=== PATIENT | male | born 1935 | race Caucasian/White ===

== ENCOUNTER 2017-12-07 19:08 | Observation (INO) | payer MEDICARE, OTHER, SELFPAY ==
[2017-12-07] VITALS (11 sets, daily range): BP systolic 117–151; BP diastolic 57–77; PULSE 64–81; RESP 16–24; TEMP 36.9–37.2; O2SAT 97–98; BMI 30.1; BMI 29.6; BMI 29.7
--- NOTE | 2017-12-07 19:21 | EKG12_ITS ---
Test Reason : DIZZYNESS Blood Pressure : / mmHG Vent. Rate : 080 BPM Atrial Rate : 080 BPM P-R Int : 224 ms QRS Dur : 082 ms QT Int : 366 ms P-R-T Axes : 000 010 058 degrees QTc Int : 422 ms Sinus rhythm with 1st degree A-V block with Premature atrial complexes Nonspecific ST and T wave abnormality Abnormal ECG Confirmed by JARAD BERNABE, VIRGIL ([id number]), copy editor NESTOR APPIAH ([id number]) on 12/13/2017 3:33:46 PM Referred By: KARELY Confirmed By:VIRGIL ABRAHAM MD
--- NOTE | 2017-12-07 19:21 | CT_ITS ---
STUDY: CT BRAIN WITHOUT CONTRAST REASON FOR EXAM: Male, 82 years old. Confusion RADIATION DOSAGE (If Supplied By Facility): CTDIvol = ( 44.99 ) mGy, DLP = ( 812.98 ) mGycm TECHNIQUE: Transaxial CT imaging of the brain was performed without administration of intravenous contrast material. Individualized dose optimization techniques were used for this CT. COMPARISON: 02/10/2014 FINDINGS: There is no acute bleed or infarct. There are stable chronic ischemic and atrophic changes. The ventricles are normal in configuration. There is no hydrocephalus. The visualized paranasal sinuses are clear. The mastoid air cells are well aerated. There is no skull fracture. CT/Brain/Head without Contrast IMPRESSION: Stable chronic ischemic and atrophic changes. No acute intracranial abnormality. Electronically Signed: Brad Tan, at 20:09 EDT Tel , Service support ,
--- NOTE | 2017-12-07 19:22 | ED.VISSUMM ---
- ER Visit Summary Date of Service: 12/07/17 Chief Complaint: Dizziness, difficulty ambulating History of Present Illness: The patient is a 82 M presents to the emergency department with multiple complaints. Patient has had lightheadedness and sensation of ataxia for the past 2 days. Today, his symptoms had worsened. notes that when he walks, he seems to be falling to the right. She also states that he was having some difficulty with tasks that he normally would not. When he was driving his car, he had difficulty backing it up. He denies any fevers or chills. He states I just do not feel myself. He denies any headache. He has had no recent trauma. Patient does have a history of hypertension, but denies any history of stroke. Has had no chest pain or dyspnea. Physical Examination: Vital signs reviewed General: Well-nourished, well-developed Head: Normocephalic, atraumatic Eyes: Pupils equal and reactive, extraocular muscles intact Neck, supple, no lymphadenopathy Heart: Regular rate and rhythm Respiratory: No distress, clear bilaterally Abdomen: Soft, nontender, nondistended, no peritoneal signs Back: Nontender Extremities: Nontender, no edema, no cords Skin: Normal color no rash Neuro: Alert and oriented, difficulty with coordination of the right lower extremity, but no other focal or lateralizing deficits Test Results: [] Emergency Department Course and Treatment: The patient presents to the emergency department with generalized weakness. He has been feeling the sensation of motion for the past 2-3 days. Today, he was having difficulty with tasks. My concern was for subacute stroke age was only 3 for some slight ataxia of the right lower extremity. However, even with simple tasks like collecting a urine, the patient was having difficulty. It was almost as if there was a component of receptive aphasia where he just could not fully understand the concepts which is definitely different from the patient's baseline. His head CT is unremarkable. There is chronic change but no acute findings. Chest x-ray was unremarkable. Screening labs do show leukocytosis, but the patient has had no other infectious symptoms. I am not sure if this is just demargination or stress reaction. Either way, with the patient's ataxia and other symptoms I do feel that he will require admission for stroke workup. Patient was discussed with the hospitalist. Treatment Plan: [] Disposition: Admission Impression: 1. Ataxia This note was generated with Bro dictation software. It may contain incorrect words, spelling, and punctuation that were not noted in review of the chart prior to signing ED Disposition - Plan for ED Patient: Chief Complaint: General Illness Referrals: Katharina Woo MD [STAFF PHYSICIAN] -
[2017-12-07 19:39] LABS: Absolute Lymphocyte Count 1.84 X10^3/ul (0.83-4.51); Absolute Neutrophil Count 13.4 X10^3/uL (2.0-7.7); Basophil# 0.01 X10^3/uL; Basophil% 0.1 % (0-1); Hematocrit 42.4 % (40-54); Hemoglobin 14.9 g/dl (13.0-16.5); Lymphocyte # 1.84 X10^3/ul (4.0); Lymphocyte % 11.7 % (19-41); Mean Corp Hgb Conc 35.1 g/gl (32-36); Mean Corpuscular Hgb 31.6 pg (27.0-32.0); Mean Corpuscular Volume 89.8 fL (80-94); Monocyte# 0.47 X10^3/uL; Neutrophil # 13.44 X10^3/uL (2.7-7.7); Neutrophil % 85.1 % (47-70); Platelet Count 172 K/mm3 (150-450); RBC Distribution Width SD 42.9 fl (35.1-43.9); Red Blood Count 4.72 M/mm3 (4.6-6.2); White Blood Count 15.8 K/mm3 (4.4-11.0)
[2017-12-07 19:41] LABS: Bedside Glucose 134 mg/dL (70-110)
--- NOTE | 2017-12-07 19:45 | RAD_ITS ---
STUDY: X-RAY CHEST REASON FOR EXAM: Male, 82 years old. Cough TECHNIQUE: Frontal view of the chest COMPARISON: None. FINDINGS: The lungs are clear. There are no pleural effusions. There is no pneumothorax. The heart is normal in size. The visualized osseous structures are within normal limits. RAD/Chest 1 View IMPRESSION: No acute thoracic pathology. Electronically Signed: Brad Tan, at 20:25 EDT Tel , Service support ,
[2017-12-07 19:46] LABS: International Normalized Ratio 1.2; Prothrombin Time (Protime)PT. 14.9 SECONDS (11.7-14.9)
[2017-12-07 19:47] LABS: Partial Thromboplast Time 31.5 Seconds (24.1-36.2)
[2017-12-07 19:51] LABS: POSITIVE COUNT NO; POSITIVE DIFFERENTIAL NO; POSITIVE MORPHOLOGY NO
[2017-12-07 20:00] LABS: ALB/GLOB Ratio 1.3 RATIO (0.9-2.4); AST(SGOT) 16 U/L (15-37); Alanine Aminotransfer ALT/SGPT 21 U/L (16-61); Albumin, Serum 3.8 g/dL (3.2-5.0); Alkaline Phosphatase 64 U/L (45-117); Anion Gap 9 (5-15); BUN 16 mg/dL (7-18); BUN/Creat Ratio 15.5 RATIO (10-20); Calcium,Total 8.8 mg/dL (8.5-10.1); Chloride 103 mmol/L (98-107); Creatinine, Serum 1.03 mg/dL (0.70-1.30); EST Glomerular Filtration Rate 74 mL/min (>60); Est Glom Filt Rate - Afr Amer 89 mL/min (>60); Estimated Creatinine Clearance 55.34 ml/min; Glucose 118 mg/dL (74-106); Potassium 3.4 mmol/L (3.5-5.1); Protein, Total 6.8 g/dL (6.4-8.2); Sodium Level 139 mmol/L (136-145)
[2017-12-07 20:22] LABS: Color, Urine Yellow (Yellow); Glucose, Dipstick Normal (Normal); Ketone-Dipstick 5 mg/dl (Negative); Leukocyte Esterase-Dipstick 25 /ul (Negative); Nitrite-Dipstick Negative (Negative); Occult Blood-Urine 25 /ul (Negative); Protein-Dipstick 30 mg/dl (Negative); Specific Gravity, Urine 1.015 (1.002-1.030); Urine Clarity Clear (Clear); Urine Urobilinogen 4 mg/dl (Normal)
[2017-12-07 20:24] LABS: Urine Bilirubin Dipstick 1 mg/dL (Negative)
[2017-12-07 20:30] LABS: Bacteria 1+ /hpf (None Seen); Mucous, Urine 2+ /hpf (<or=2+); Red Blood Cells-Urine 0-5 SEEN /hpf (0-5); Squamous Epithelial Cells - UA 0-5 SEEN /hpf (0-5); White Blood Cells 0-5 SEEN /hpf (0-5)
--- NOTE | 2017-12-07 20:49 | ED.RN ---
NIHSS REMAINS 0, HOWEVER PT HAS SOME DIFFICULTY FOLLOWING MULTIPLE STEP DIRECTIONS. PER PT HAS SOME MEMORY PROBLEMS, BUT ACTING DIFFERENT TODAY, JUST LIKE SOMEONE TURNED HIS SWITCH OFF.
[2017-12-07] MEDS: Aspirin 81 MG TAB.CHEW PO (23:10)
--- NOTE | 2017-12-07 23:10 | PCM.HP.STD ---
Problem List (1) Ataxia Status: Acute (2) Lightheadedness Status: Acute History of Present Illness Date of Admission: 12/07/17 Chief Complaint: Ataxia, lightheadedness The patient is a 82 year old M who was seen in the emergency room at [facility] with complaints of feeling off balance and having lightheadedness over the past 3 days. Patient's who was here during the time of my examination stated that the patient was also just sitting in a chair today staring off into space for long periods of time and he was not acting his appropriate self. Patient also try to back up a car today and was unable to back out of the garage without assistance. Patient and the patient's family denied any speech difficulties, denied any visual disturbances, and denied any focal weakness although the patient's states that the patient was leaning over to his right side today. Evaluation in the emergency room included labs which were remarkable for white blood cell count at 15.8, potassium was 3.4, bilirubin was 1.8. Urinalysis showed +1 bacteria but was otherwise normal, chest x-ray was unremarkable, patient had a CT of his brain which did not show any evidence of acute process or stroke. ER physicians examination rated the patient's NIH stroke score to be 1 due to some ataxia of the right lower extremity. On my examination, patient was alert and appropriate, I did not ambulate him but nursing stated that when he went in to give a urine specimen he ambulated without assistance appropriately. Patient will be placed in observation status on PCU, NIH stroke checks will continue, patient will have an MRA of his head and neck tomorrow as well as an MRI of the brain without contrast. I am not sure at this point what exactly is the patient's medical problem, CBC will be repeated tomorrow as well as liver profile. Nursing states that the patient's has told them that the patient has been exhibiting memory issues over the past few years. Past Medical History Allergies Penicillins Allergy (Verified 12/07/17 19:08) Unknown Sulfa (Sulfonamide Antibiotics) Allergy (Verified 12/07/17 19:08) Other Home Medications: Ambulatory Orders Medication Instructions Recorded Amlodipine [Norvasc] 10 mg PO DAILY 02/10/14 Coral Calcium 185 mg PO DAILY 02/10/14 Glucosamine/MSM/Chondroitin A 1 each PO DAILY 02/10/14 [Glucosamine Chondroit MSM Tab] Lisinopril/Hydrochlorothiazide 1 tablet PO DAILY 02/10/14 [Zestoretic 20/25 Tablet] Ergocalciferol (Vitamin D2) 12/07/17 Meloxicam 12/07/17 Surgical History: appendectomy, tonsillectomy, - - Surgery on eye to remove metal fragment, ORIF ankle fracture Psychiatric History: No pertinent psych hx Lives: Spouse/ Significant Other Smoking Status: Former smoker Tobacco Use: Non-smoker Alcohol: None Drugs: None - *Family History Maternal History Items: Heart Disease Paternal History Items: Cancer Review of Systems Constitutional: Denies: Anorexia, Chills, Fever, Night Sweats, Malaise, Weakness, Weight Change, Fatigue Eyes: Denies: Blurred vision, Cataracts, Double vision, Drainage HEENT: Denies: Difficulty Swallowing, Dysphasia, Ear Pain, Eye Pain, Head Aches, Hearing Changes, Nasal bleeding, Nasal Congestion, Post Nasal Drip Cardiovascular: Denies: Chest Pain, Claudication, Chest Pressure, Chest Tightness, Edema, Heaviness, Light Headedness, Orthopnea, Palpitations, Paroxysmal Noc. Dyspnea, Syncope Respiratory: Denies: Cough, Hemoptysis, Pleuritic Pain, Shortness of Breath, Shortness of breath at rest, Shortness of breath upon exertion, Sputum production, Wheezing Gastrointestinal: Denies: Abdominal Pain, Constipation, Diarrhea, Hematemesis, Hematochezia, Nausea, Melena, Vomiting Genitourinary: Denies: Dysuria, Frequency, Hematuria, Hesitancy, Incontinence, Nocturia, Retention, Urgency Musculoskeletal: Denies: Back Pain, Foot Pain, Hand Pain, Joint Pain, Joint stiffness, Joint swelling, Joint Tenderness, Leg Pain Skin: Denies: Dryness, Jaundice, Pruritis, Rash Neurological: Reports: Balance problems. Denies: Blurred vision, Double vision, Slurred speech, Confusion, Difficulty swallowing, Focal weakness, Headaches, Incoordination, Numbness, Tingling, Tremor, Seizures Psychiatric: Denies: Anxiety, Depression, Homicidal Ideations, Suicidal Ideations Endocrine: Denies: Change in Body Habitus, Heat/ Cold Intolerance, Polydipsia, Polyuria Hematologic/ Lymphatic: Denies: Adenopathy, Anemia, Easy Bruising, Easy Bleeding, Petechiae, Purpura VTE Information - Inpt Only VTE Present on Admission: No VTE Mechan Device Prophylaxis: SCD's VTE Pharm Prophylaxis ordered?: No Reason prophylaxis not ordered:: Treatment Not Indicated - not needed Patient Problems: Active and Suspected Problems Ataxia (Acute) Lightheadedness (Acute) - Physical Exam General: Alert, Oriented x3, Cooperative, No apparent distress, Well developed, Well nourished HEENT: Atraumatic, PERRLA, EOMI, Normocephalic Oral: Moist Mucosa Neck: Supple, No JVD, Negative Carotid Bruits, No Nuchal Rigidity, Trachea Midline, Thyroid Normal Size and Texture Lungs: Clear to auscultation, Normal air movement, No rhonchi, No wheeze, No rales Cardiovascular: Regular rate, Regular Rhythm, Normal S1, Normal S2, No murmurs, No Ectopic Activity, PMI Normal, No rub noted, No Gallop Abdomen: Bowel Sounds Present, Soft, Non Tender, Non-Distended, No hernias noted Extremities: No clubbing, No cyanosis, No edema, Capillary Refill Less than 3 Seconds Skin: No rashes, No breakdown Musculoskeletal: No Tenderness to Palpation of Joints or Extremities Neurological: Cranial nerves II-XII grossly intact, Neuro grossly intact, Muscle tone normal, Sensory exam intact to light touch and pain, Coordination normal Psych/Mental Status: Normal Affect, Appropriate, Alert and oriented to time, place, person, mood and affect Vital Signs Temp Pulse Resp BP Pulse Ox 98.5 F 69 16 117/57 L 97 12/07/17 22:01 12/07/17 22:01 12/07/17 22:01 12/07/17 22:01 12/07/17 22:01 Oxygen Delivery Method Room Air Weight: 88.5 kg Body Mass Index (BMI) 29.6 Assessment/Plan All Active Problems Ataxia (Acute) Lightheadedness (Acute) #1 ataxia-etiology unclear, patient will be placed in observation status on PCU, MRI of the brain as well as MRA of the head neck will be performed, if there is an identified stroke present, patient will be seen by PT and OT and have a neurological consultation. I will place the patient on a baby aspirin daily-he is not taking one as an outpatient. NIH stroke scores will continue on the floor #2 leukocytosis-etiology unclear, CBC will be rechecked tomorrow, workup in the emergency room is negative for any acute infection at this point, patient has no complaints of any abdominal pain or dysuria or cough with purulent sputum production. #3 elevated bilirubin-etiology unclear, liver profile will be obtained tomorrow morning #4 hypertension-patient will remain on his current medication #5 hypokalemia-mild, probably secondary to diuretic usage, patient will be given oral potassium Code Visit OBSV E&M: 95214 Initial observation care L3
[2017-12-08 01:38] VITALS: BMI 29.6
[2017-12-08 02:00] VITALS: BP 116/77; PULSE 61; RESP 16; TEMP 37.7; O2SAT 94
[2017-12-08 05:16] VITALS: PULSE 64
--- NOTE | 2017-12-08 05:55 | MRI_ITS ---
STUDY: MRA OF THE HEAD WITHOUT CONTRAST REASON FOR EXAM: Male, 82 years old. Vertigo TECHNIQUE: 3-D wnbz-sh-kzeqms (TOF) imaging was performed with MIPs. The study was performed unenhanced. COMPARISON: None. FINDINGS: Normal bilateral petrous carotid arteries. Normal right cavernous carotid artery with a normal supraclinoid bifurcation. Normal left cavernous carotid artery with a normal supraclinoid bifurcation. Normal right A1 segments of the anterior cerebral artery. Normal left A1 segments of the anterior cerebral artery. Normal intact anterior communicating artery (ACOM). Normal bilateral A2 segments of the anterior cerebral arteries. Normal right M1 and M2 segments of the middle cerebral arteries, with a normal M1 bifurcation. Normal left M1 and M2 segments of the middle cerebral arteries, with a normal M1 bifurcation. Normal right posterior communicating artery (PCOM). Normal left posterior communicating artery (PCOM). Right dominant vertebral artery. Normal basilar artery with a normal basilar bifurcation. The visualized bilateral superior cerebellar (SCA) arteries are normal. Normal bilateral P1, P2 and visualized P3 segments of the posterior cerebral arteries. There is no demonstrated aneurysm of the [place] of [place]. There is no major vessel occlusion or hemodynamically significant stenosis MRI/MRA Head ONLY without Contrast IMPRESSION: No evidence for intracranial large vessel occlusion. No evidence for intracranial aneurysm seen. Right dominant vertebral artery seen. Electronically Signed: Robin Lee, at 9:50 EDT Tel , Service support ,
--- NOTE | 2017-12-08 05:55 | MRI_ITS ---
STUDY: MRA NECK WITH AND WITHOUT CONTRAST REASON FOR EXAM: Male, 82 years old. Vertigo TECHNIQUE: 3-D xdjt-zq-augytm (TOF) imaging was performed in an 1.5 T MRI scanner. 9 ml of Gadavist was administered for the contrast enhanced images. COMPARISON: None. FINDINGS: RIGHT CAROTID ARTERIES: The origin of the great vessels are not well seen. Bilateral common carotid arteries are patent. The carotid bifurcations are not well visualized however the mid and distal segments of the cervical internal carotid arteries are patent. Nondominant left vertebral artery is poorly visualized possibly hypoplastic IMPRESSION: No definite evidence for carotid occlusion. Significantly motion degraded MR angiogram of the neck. Please consider MR or CT angiogram with IV contrast for better assessment A right dominant vertebral artery suspected Electronically Signed: Robin Lee, at 10:21 EDT Tel , Service support , MRI/MRA Neck WITH and W/O Contrast
--- NOTE | 2017-12-08 05:55 | MRI_ITS ---
STUDY: MRI BRAIN WITHOUT CONTRAST REASON FOR EXAM: Male, 82 years old. Visual and speech changes. Vertigo TECHNIQUE: Standardized multiplanar fat and water weighted pulse sequences were obtained. COMPARISON: None. FINDINGS: No evidence for shift of midline structures, mass effect or compression of ventricles noted. No acute intra-articular extra-axial hemorrhage is seen. No abnormal intracranial fluid collections identified. Age-related involutional changes seen. Skull base vascular flow voids are patent. The right dominant vertebral artery flow-void seen. Scattered foci of T2/FLAIR hyperintensity in the periventricular and subcortical white matter noted which are nonspecific in imaging appearance however may relate with mild chronic small vessel disease. Mild mucosal thickening of the ethmoid vessels and the maxillary sinuses. Mastoid air cells are clear. IMPRESSION: No evidence for acute or subacute ischemic insult. No evidence for intracranial mass or acute hemorrhage. Mild chronic small vessel disease. Electronically Signed: Robin Lee, at 9:48 EDT Tel , Service support , MRI/Brain without Contrast
[2017-12-08 06:00] VITALS: BP 114/68; PULSE 59; RESP 16; TEMP 37.1; O2SAT 94
[2017-12-08 06:06] LABS: Absolute Neutrophil Count 11.7 X10^3/uL (2.0-7.7); Basophil# 0.01 X10^3/uL; Basophil% 0.1 % (0-1); Eosinophil# 0.01 X10^3/uL; Eosinophils% 0.1 % (0-5); Hematocrit 38.3 % (40-54); Hemoglobin 13.5 g/dl (13.0-16.5); Lymphocyte % 7.8 % (19-41); Mean Corp Hgb Conc 35.2 g/gl (32-36); Mean Corpuscular Volume 90.8 fL (80-94); Mean Platelet Vol. 10.2 fl (6.2-12.0); Monocyte# 1.26 X10^3/uL; Monocyte% 8.9 % (0-10); Neutrophil # 11.73 X10^3/uL (2.7-7.7); Platelet Count 138 K/mm3 (150-450); RBC Distribution Width SD 42.9 fl (35.1-43.9); Red Blood Count 4.22 M/mm3 (4.6-6.2); White Blood Count 14.1 K/mm3 (4.4-11.0)
[2017-12-08 06:07] LABS: POSITIVE COUNT NO; POSITIVE DIFFERENTIAL NO; POSITIVE MORPHOLOGY NO
[2017-12-08 06:26] LABS: AST(SGOT) 14 U/L (15-37); Alanine Aminotransfer ALT/SGPT 20 U/L (16-61); Albumin, Serum 3.2 g/dL (3.2-5.0); Alkaline Phosphatase 59 U/L (45-117); Bilirubin, Direct 0.41 mg/dL (0.00-0.30); Globulin 2.9 g/dL (2.2-4.2); Protein, Total 6.1 g/dL (6.4-8.2)
[2017-12-08 06:57] VITALS: PULSE 75
[2017-12-08] MEDS: Aspirin 81 MG TAB.CHEW PO (09:00)
[2017-12-08 09:20] VITALS: BP 110/59; PULSE 75; RESP 16; TEMP 37; O2SAT 98
[2017-12-08] MEDS: hydroCHLOROthiazide 25 MG Tablet PO (09:35)
[2017-12-08] MEDS: amLODIPine 10 MG Tablet PO (09:35)
[2017-12-08] MEDS: Lisinopril 20 MG Tablet PO (09:35)
--- NOTE | 2017-12-08 10:20 | PCM.PN.HOSP ---
Patient Problems: Active and Suspected Problems Ataxia (Acute) Lightheadedness (Acute) Subjective: no recollection of events from yesterday. Objective: pleasantly confused Vitals/I&O's: Vital Signs Temp Pulse Resp BP Pulse Ox 37.0 C 75 16 110/59 L 98 12/08/17 09:20 12/08/17 09:20 12/08/17 09:20 12/08/17 09:20 12/08/17 09:20 Oxygen Delivery Method Room Air Weight: 88.5 kg Body Mass Index (BMI) 29.6 Intake and Output for Last 24 Hours 12/06/17 12/07/17 12/08/17 23:59 23:59 23:59 Intake Total 240 / 240 Balance 240 / 240 General: Alert, No apparent distress, - - oreinted to self HEENT: Atraumatic, PERRLA, EOMI, Normocephalic Oral: Moist Mucosa, No Gingival or Mucosal Lesions/ Ulcerations Neck: No Nodes, Thyroid Normal Size and Texture Lungs: Clear to auscultation, Normal air movement, No rhonchi, No wheeze Cardiovascular: Regular rate, Regular Rhythm, Normal S1, Normal S2, No murmurs Abdomen: Bowel Sounds Present, Soft, Non Tender, Non-Distended, No Hepato-splenomegaly Extremities: No edema, No Calf Tenderness Skin: No rashes, No breakdown Neurological: Cranial nerves II-XII grossly intact, Neuro grossly intact, Motor Exam 5/5 strength throughout Psych/Mental Status: Normal Affect, Appropriate Laboratory Results 12/08/17 05:40: WBC 14.1 H, RBC 4.22 L, Hgb 13.5, Hct 38.3 L, MCV 90.8, MCH 32.0, MCHC 35.2, RDW 13.0, RDW Differential 42.9, Plt Count 138 L, MPV 10.2, Immature Gran % (Auto) 0.100, Neut % (Auto) 83.0 H, Lymph % (Auto) 7.8 L, [place] % (Auto) 8.9, Eos % (Auto) 0.1, Baso % (Auto) 0.1, Absolute Neuts (auto) 11.7 H, Absolute Lymphs (auto) 1.10, Total Counted Not Reportable 12/08/17 05:40: Total Bilirubin 1.60 H, Direct Bilirubin 0.41 H, AST 14 L, ALT 20, Alkaline Phosphatase 59, Total Protein 6.1 L, Albumin 3.2, Globulin 2.9 Current Medications Amlodipine Besylate (Norvasc) 10 mg PO DAILY [facility] Last Admin: 12/08/17 09:35 Dose: 10 mg Aspirin (Aspirin, Baby) 81 mg PO DAILY@0800 Y[facility]IKO Last Admin: 12/08/17 09:00 Dose: 81 mg Hydrochlorothiazide (Hctz) 25 mg PO DAILY [facility] Last Admin: 12/08/17 09:35 Dose: 25 mg Sodium Chloride () 500 mls @ 999 mls/hr IV .Q31M ONE Last Admin: 12/07/17 19:29 Dose: 999 mls/hr Lisinopril (Zestril) 20 mg PO DAILY [facility] Last Admin: 12/08/17 09:35 Dose: 20 mg Sodium Chloride () 5 - 30 ml IV UD PRN PRN Reason: SALINE FLUSH Medical Necessity - Tobacco Use Smoking Status: Former smoker Tobacco Use: Non-smoker Assessment/Plan All Active Problems Ataxia (Acute) Lightheadedness (Acute) 1. ataxia no appreciable ataxia now undergoing CVA work up If not evidence of CVA, may be confusion related to his dementia. 2. leukocytosis + left shift UA and CXR negative no obvious source on infection 3. elevated Bilirubin asymptomatic has been elevated in past (Reviewed Clinisync: Total Bili was 1.7 on 01/09/17, though 1.1 on 11/13/17) I suspect a benign process (Gilbert's?) 4. DVT proph: SCDs Code Visit OBSV E&M: 39050 Subsequent observation care L3
--- NOTE | 2017-12-08 10:32 | PN_ITS ---
Patient Problems: Active and Suspected Problems Ataxia (Acute) Lightheadedness (Acute) Subjective: no recollection of events from yesterday. Objective: pleasantly confused Vitals/I&O's: Vital Signs Temp Pulse Resp BP Pulse Ox 37.0 C 75 16 110/59 L 98 12/08/17 09:20 12/08/17 09:20 12/08/17 09:20 12/08/17 09:20 12/08/17 09:20 Oxygen Delivery Method Room Air Weight: 88.5 kg Body Mass Index (BMI) 29.6 Intake and Output for Last 24 Hours 12/06/17 12/07/17 12/08/17 23:59 23:59 23:59 Intake Total 240 / 240 Balance 240 / 240 General: Alert, No apparent distress, - - oreinted to self HEENT: Atraumatic, PERRLA, EOMI, Normocephalic Oral: Moist Mucosa, No Gingival or Mucosal Lesions/ Ulcerations Neck: No Nodes, Thyroid Normal Size and Texture Lungs: Clear to auscultation, Normal air movement, No rhonchi, No wheeze Cardiovascular: Regular rate, Regular Rhythm, Normal S1, Normal S2, No murmurs Abdomen: Bowel Sounds Present, Soft, Non Tender, Non-Distended, No Hepato- splenomegaly Extremities: No edema, No Calf Tenderness Skin: No rashes, No breakdown Neurological: Cranial nerves II-XII grossly intact, Neuro grossly intact, Motor Exam 5/5 strength throughout Psych/Mental Status: Normal Affect, Appropriate Laboratory Results 12/08/17 05:40: WBC 14.1 H, RBC 4.22 L, Hgb 13.5, Hct 38.3 L, MCV 90.8, MCH 32.0 , MCHC 35.2, RDW 13.0, RDW Differential 42.9, Plt Count 138 L, MPV 10.2, Immature Gran % (Auto) 0.100, Neut % (Auto) 83.0 H, Lymph % (Auto) 7.8 L, [place] % (Auto) 8.9, Eos % (Auto) 0.1, Baso % (Auto) 0.1, Absolute Neuts (auto) 11.7 H , Absolute Lymphs (auto) 1.10, Total Counted Not Reportable 12/08/17 05:40: Total Bilirubin 1.60 H, Direct Bilirubin 0.41 H, AST 14 L, ALT 20, Alkaline Phosphatase 59, Total Protein 6.1 L, Albumin 3.2, Globulin 2.9 Current Medications Amlodipine Besylate (Norvasc) 10 mg PO DAILY [facility] Last Admin: 12/08/17 09:35 Dose: 10 mg Aspirin (Aspirin, Baby) 81 mg PO DAILY@0800 YUMIKO Last Admin: 12/08/17 09:00 Dose: 81 mg Hydrochlorothiazide (Hctz) 25 mg PO DAILY [facility] Last Admin: 12/08/17 09:35 Dose: 25 mg Sodium Chloride () 500 mls @ 999 mls/hr IV .Q31M ONE Last Admin: 12/07/17 19:29 Dose: 999 mls/hr Lisinopril (Zestril) 20 mg PO DAILY [facility] Last Admin: 12/08/17 09:35 Dose: 20 mg Sodium Chloride () 5 - 30 ml IV UD PRN PRN Reason: SALINE FLUSH Medical Necessity - Tobacco Use Smoking Status: Former smoker Tobacco Use: Non-smoker Assessment/Plan All Active Problems Ataxia (Acute) Lightheadedness (Acute) 1. ataxia * no appreciable ataxia now * undergoing CVA work up * If not evidence of CVA, may be confusion related to his dementia. 2. leukocytosis * + left shift * UA and CXR negative * no obvious source on infection 3. elevated Bilirubin * asymptomatic * has been elevated in past (Reviewed Clinisync: Total Bili was 1.7 on 01/09/17, though 1.1 on 11/13/17) * I suspect a benign process (Gilbert's?) 4. DVT proph: SCDs Code Visit OBSV E&M: 87006 Subsequent observation care L3
--- NOTE | 2017-12-08 10:38 | PCM.DC ---
- Discharge Diagnoses Current Active Problems: Current Active and Chronic Problems Ataxia (Acute) Lightheadedness (Acute) You will use the following diet at home:: No restrictions Your food should be the consistency of: Regular Discharge Activity: Return to Normal Activity Call your doctor if you observe: Fever of 101 or Higher, Shortness of breath, Chest pain, - - worsening confusion. unilateral weakness. Allergies/Adverse Reactions: Allergies Penicillins Allergy (Verified 12/07/17 19:08) Unknown Sulfa (Sulfonamide Antibiotics) Allergy (Verified 12/07/17 19:08) Other Medications to take at Discharge Amlodipine [Norvasc] 10 mg PO DAILY 02/10/14 Coral Calcium 185 mg PO DAILY 02/10/14 Glucosamine/MSM/Chondroitin A [Glucosamine Chondroit MSM Tab] 1 each PO DAILY 02/10/14 Lisinopril/Hydrochlorothiazide [Zestoretic 20/25 Tablet] 1 tablet PO DAILY 02/10/14 Ergocalciferol (Vitamin D2) 12/07/17 Meloxicam 12/07/17 Primary Care Physician: Katharina Woo MD [STAFF PHYSICIAN] - Within 2 Weeks Proposed Discharge Date: 12/08/17
--- NOTE | 2017-12-08 10:39 | PCM.DC.SUM ---
Discharge Date and Diagnosis - Problem List Patient Problems: Active and Suspected Problems Ataxia (Acute) Lightheadedness (Acute) Date of Admission: 12/07/17 Date of Discharge: 12/08/17 - Primary Discharge Diagnosis Active and Suspected Problems Ataxia (Acute) Lightheadedness (Acute) Hospital Course and Treatment Imaging Results: 12/08/17 05:55 Brain without Contrast [MRI] AM (NON MEDS) MRA Head ONLY without Contrast [MRI] AM (NON MEDS) MRA Neck WITH and W/O Contrast [MRI] Routine Clinical Impression(s) from Imaging Studies Brain CT 12/07/17 19:21 IMPRESSION: Stable chronic ischemic and atrophic changes. No acute intracranial abnormality. Electronically Signed: Brad Tan, at 20:09 EDT Tel , Service support , Chest X-Ray 12/07/17 19:45 IMPRESSION: No acute thoracic pathology. Electronically Signed: Brad Tan, at 20:25 EDT Tel , Service support , Brain MRI 12/08/17 05:55 Head MRA 12/08/17 05:55 IMPRESSION: No evidence for intracranial large vessel occlusion. No evidence for intracranial aneurysm seen. Right dominant vertebral artery seen. Electronically Signed: Robin Lee, at 9:50 EDT Tel , Service support , Neck MRA 12/08/17 05:55 Operations: None Procedures: None Summary of Care Provided: The patient is a 82 year old M presents with not acting himself. Some noted ataxia but on exam it was not noted. Patient underwent neurologic workup for stroke. MRI of his head neck. And patient's neurologic exam is completely normal and his NIH score is 0. It is my feeling, that this may be related to patient's underlying dementia and he may have periods where he is better and worse at times during the day. I recommend patient getting a geriatric evaluation as outpatient. Patient also apparently is driving. I would recommend the patient not drive until further evaluated by geriatrics. Additionally, patient was noted to have a elevated bilirubin of 1.8. Looking at previous lab work patient has had previously elevated bilirubin but has been normal at times. The patient has an underlying benign hyperbilirubinemia such as Gilbert's. This can be further evaluated as outpatient. I called the patient's to inform her just left a message for her to contact us if she had any questions. [] Discharge Diet: No Restrictions Discharge Activity: Return to Normal Activity, May Not Drive - until evaluated by geriatric driving evaluation Call your doctor if you observe: Fever of 101 or Higher, Shortness of breath, Chest pain, - - worsening confusion. unilateral weakness. Home Medications: Medications to take at Discharge Amlodipine [Norvasc] 10 mg PO DAILY 02/10/14 Coral Calcium 185 mg PO DAILY 02/10/14 Glucosamine/MSM/Chondroitin A [Glucosamine Chondroit MSM Tab] 1 each PO DAILY 02/10/14 Lisinopril/Hydrochlorothiazide [Zestoretic 20/25 Tablet] 1 tablet PO DAILY 02/10/14 Ergocalciferol (Vitamin D2) 12/07/17 Meloxicam 12/07/17 Primary Care Physician: Katharina Woo MD [STAFF PHYSICIAN] - Within 2 Weeks Disposition: Home Minutes spent on discharge:: 32 Patient Condition:: Fair Medical Necessity - Tobacco Use Smoking Status: Former smoker Tobacco Use: Non-smoker Meaningful Use Info Meaningful Use Diagnoses (Choose all that apply): None applicable Code Visit OBSV E&M: 20494 Observation care discharge
--- NOTE | 2017-12-08 10:43 | DS.PCM_ITS ---
Discharge Date and Diagnosis - Problem List Patient Problems: Active and Suspected Problems Ataxia (Acute) Lightheadedness (Acute) Date of Admission: 12/07/17 Date of Discharge: 12/08/17 - Primary Discharge Diagnosis Active and Suspected Problems Ataxia (Acute) Lightheadedness (Acute) Hospital Course and Treatment Imaging Results: 12/08/17 05:55 Brain without Contrast [MRI] AM (NON MEDS) MRA Head ONLY without Contrast [MRI] AM (NON MEDS) MRA Neck WITH and W/O Contrast [MRI] Routine Clinical Impression(s) from Imaging Studies Brain CT 12/07/17 19:21 IMPRESSION: Stable chronic ischemic and atrophic changes. No acute intracranial abnormality. Electronically Signed: Brad Tan, at 20:09 EDT Tel , Service support , Chest X-Ray 12/07/17 19:45 IMPRESSION: No acute thoracic pathology. Electronically Signed: Brad Tan, at 20:25 EDT Tel , Service support , Brain MRI 12/08/17 05:55 Head MRA 12/08/17 05:55 IMPRESSION: No evidence for intracranial large vessel occlusion. No evidence for intracranial aneurysm seen. Right dominant vertebral artery seen. Electronically Signed: Robin Lee, at 9:50 EDT Tel , Service support , Neck MRA 12/08/17 05:55 Operations: None Procedures: None Summary of Care Provided: The patient is a 82 year old M presents with not acting himself. Some noted ataxia but on exam it was not noted. Patient underwent neurologic workup for stroke. MRI of his head neck. And patient's neurologic exam is completely normal and his NIH score is 0. It is my feeling, that this may be related to patient's underlying dementia and he may have periods where he is better and worse at times during the day. I recommend patient getting a geriatric evaluation as outpatient. Patient also apparently is driving. I would recommend the patient not drive until further evaluated by geriatrics. Additionally, patient was noted to have a elevated bilirubin of 1.8. Looking at previous lab work patient has had previously elevated bilirubin but has been normal at times. The patient has an underlying benign hyperbilirubinemia such as Gilbert's. This can be further evaluated as outpatient. I called the patient's to inform her just left a message for her to contact us if she had any questions. [] Discharge Diet: No Restrictions Discharge Activity: Return to Normal Activity, May Not Drive - until evaluated by geriatric driving evaluation Call your doctor if you observe: Fever of 101 or Higher, Shortness of breath, Chest pain, - - worsening confusion. unilateral weakness. Home Medications: Medications to take at Discharge Amlodipine [Norvasc] 10 mg PO DAILY 02/10/14 Coral Calcium 185 mg PO DAILY 02/10/14 Glucosamine/MSM/Chondroitin A [Glucosamine Chondroit MSM Tab] 1 each PO DAILY Lisinopril/Hydrochlorothiazide [Zestoretic 20/25 Tablet] 1 tablet PO DAILY 02/10 Ergocalciferol (Vitamin D2) 12/07/17 Meloxicam 12/07/17 Primary Care Physician: Katharina Woo MD [STAFF PHYSICIAN] - Within 2 Weeks Disposition: Home Minutes spent on discharge:: 32 Patient Condition:: Fair Medical Necessity - Tobacco Use Smoking Status: Former smoker Tobacco Use: Non-smoker Meaningful Use Info Meaningful Use Diagnoses (Choose all that apply): None applicable Code Visit OBSV E&M: 75543 Observation care discharge
[2017-12-08 10:56] VITALS: PULSE 71
== END 2017-12-08 10:39 | disposition home or self-care (01) ==
LOC: ED 19:59 → PCU 21:35
PROVIDERS: Admitting Provider Internal Medicine; Emergency Provider Emergency Medicine; Family Provider Internal Medicine; PCP Internal Medicine
DX: R42 Dizziness and giddiness (principal); R27.8 Other lack of coordination; I10 Essential (primary) hypertension; Z79.899 Other long term (current) drug therapy; Z87.891 Personal history of nicotine dependence; D72.829 Elevated white blood cell count, unspecified; E87.6 Hypokalemia; F03.90 Unspecified dementia, unspecified severity, without behavioral disturbance, psychotic disturbance, mood disturbance, and anxiety; R94.31 Abnormal electrocardiogram [ECG] [EKG]; R11.0 Nausea; R53.1 Weakness
CPT/HCPCS: 36415; 70450; 70544; 70549; 70551; 71045; 80053; 80076; 81001; 82962; 84484; 85025; 85610; 85730; 87077; 87086; 87088; 87186; 93005; 96360; 97161; 97165; 99218; 99285; A9585; J7030; J7040; G0378

== ENCOUNTER 2017-12-13 10:57 | Emergency (ER) | payer MEDICARE, OTHER, SELFPAY ==
[2017-12-13] VITALS (8 sets, daily range): BP systolic 117–137; BP diastolic 60–99; PULSE 54–71; RESP 14–18; TEMP 36.3; O2SAT 97–99; BMI 31.4
--- NOTE | 2017-12-13 11:55 | EKG12_ITS ---
Test Reason : MEDICAL CLEARANCE Blood Pressure : / mmHG Vent. Rate : 068 BPM Atrial Rate : 068 BPM P-R Int : 000 ms QRS Dur : 086 ms QT Int : 428 ms P-R-T Axes : 000 028 025 degrees QTc Int : 455 ms Atrial fibrillation Otherwise normal ECG Confirmed by JARAD BERNABE, VIRGIL ([id number]), science editor NESTOR APPIAH ([id number] on 12/17/2017 2:45:33 PM Referred By: SEMAJ/RABIA Confirmed By:VIRGIL ABRAHAM MD
[2017-12-13 12:31] LABS: Absolute Lymphocyte Count 1.31 X10^3/ul (0.83-4.51); Absolute Neutrophil Count 7.4 X10^3/uL (2.0-7.7); Basophil# 0.03 X10^3/uL; Basophil% 0.3 % (0-1); Eosinophil# 0.06 X10^3/uL; Eosinophils% 0.6 % (0-5); Hematocrit 41.7 % (40-54); Hemoglobin 14.5 g/dl (13.0-16.5); Lymphocyte # 1.31 X10^3/ul (4.0); Lymphocyte % 13.6 % (19-41); Mean Corp Hgb Conc 34.8 g/gl (32-36); Mean Corpuscular Hgb 31.1 pg (27.0-32.0); Mean Corpuscular Volume 89.5 fL (80-94); Mean Platelet Vol. 9.9 fl (6.2-12.0); Monocyte# 0.63 X10^3/uL; Monocyte% 6.6 % (0-10); Neutrophil # 7.39 X10^3/uL (2.7-7.7); Neutrophil % 76.9 % (47-70); Platelet Count 250 K/mm3 (150-450); RBC Distribution Width CV 12.7 % (11.6-14.6); RBC Distribution Width SD 40.9 fl (35.1-43.9); Red Blood Count 4.66 M/mm3 (4.6-6.2); White Blood Count 9.6 K/mm3 (4.4-11.0)
[2017-12-13 12:35] LABS: POSITIVE COUNT YES; POSITIVE DIFFERENTIAL NO; POSITIVE MORPHOLOGY YES
[2017-12-13 12:47] LABS: Anion Gap 7 (5-15); BUN 20 mg/dL (7-18); BUN/Creat Ratio 18.9 RATIO (10-20); Calcium,Total 9.4 mg/dL (8.5-10.1); Chloride 106 mmol/L (98-107); Creatinine, Serum 1.06 mg/dL (0.70-1.30); EST Glomerular Filtration Rate 71 mL/min (>60); Est Glom Filt Rate - Afr Amer 86 mL/min (>60); Estimated Creatinine Clearance 48.35 ml/min; Glucose 108 mg/dL (74-106); Potassium 3.7 mmol/L (3.5-5.1); Sodium Level 142 mmol/L (136-145)
[2017-12-13 12:48] LABS: AST(SGOT) 29 U/L (15-37); Alanine Aminotransfer ALT/SGPT 47 U/L (16-61); Albumin, Serum 3.5 g/dL (3.2-5.0); Alkaline Phosphatase 71 U/L (45-117); Bilirubin, Direct 0.25 mg/dL (0.00-0.30); Globulin 3.7 g/dL (2.2-4.2); Protein, Total 7.2 g/dL (6.4-8.2)
[2017-12-13 12:58] LABS: Alcohol, Blood (Medical)-Serum < 3.0 mg/dL
--- NOTE | 2017-12-13 12:58 | CT_ITS ---
STUDY: CT BRAIN WITHOUT CONTRAST REASON FOR EXAM: Male, 82 years old. Confusion. RADIATION DOSAGE (If Supplied By Facility): CTDIvol = ( 44.99 ) mGy, DLP = ( 796.11 ) mGycm TECHNIQUE: Transaxial CT imaging of the brain was performed without administration of intravenous contrast material. Individualized dose optimization techniques were used for this CT. COMPARISON: Comparison is made with prior study dated December 07, 2017. FINDINGS: Normal soft tissue structures. Normal calvarium. There is mild cerebral atrophy with widening of the extra-axial spaces and ventricular dilatation. Normal white matter tracts of the cerebral hemispheres. Normal basal ganglia and thalami. Normal brainstem. Normal cerebellum. There is no intracranial hemorrhage. There are no findings of an acute ischemic infarction. There is atherosclerotic calcification of the cavernous portions of the internal carotid arteries bilaterally. Normal visualized paranasal sinuses. CT/Brain/Head without Contrast IMPRESSION: Chronic involutional changes of the brain. Electronically Signed: Dax Poe MD at 14:06 EDT Tel [phone], Service support ,
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
--- NOTE | 2017-12-13 13:16 | RAD_ITS ---
STUDY: X-RAY CHEST REASON FOR EXAM: Male, 82 years old. Confusion. TECHNIQUE: PA and lateral views of the chest. COMPARISON: Comparison is made with prior study dated December 07, 2017. FINDINGS: The lungs are clear and expanded. There is no demonstrated pleural abnormality. Normal size heart. Normal mediastinum and gris. Normal visualized pulmonary arteries. There is atherosclerotic calcification of the aortic arch with tortuosity. There are diffuse degenerative changes of the visualized thoracic spine. Normal visualized ribs, clavicles, and shoulders. There is no demonstrated abnormality of the visualized soft tissue structures of the upper abdomen. RAD/Chest PA and Lateral IMPRESSION: No acute abnormality is seen. Electronically Signed: Dax Poe MD at 13:43 EDT Tel [phone], Service support ,
[2017-12-13 13:27] LABS: Thyroid Stim Hormone (TSH) 0.64 uIU/mL (0.358-3.74)
[2017-12-13 13:49] LABS: Bacteria 0 SEEN /hpf (None Seen); Mucous, Urine 0 SEEN /hpf (<or=2+); Red Blood Cells-Urine 0 SEEN /hpf (0-5)
[2017-12-13 13:53] LABS: Color, Urine Yellow (Yellow); Glucose, Dipstick Normal (Normal); Ketone-Dipstick Negative (Negative); Leukocyte Esterase-Dipstick 25 /ul (Negative); Nitrite-Dipstick Negative (Negative); Occult Blood-Urine Negative /ul (Negative); Protein-Dipstick 15 mg/dl (Negative); Urine Bilirubin Dipstick Negative (Negative); Urine Clarity Clear (Clear); Urine Urobilinogen 1 mg/dl (Normal)
[2017-12-13 14:00] LABS: Squamous Epithelial Cells - UA 0-5 SEEN /hpf (0-5); White Blood Cells 0-5 SEEN /hpf (0-5)
[2017-12-13 14:02] LABS: Amphetamine Urine VISTA NEGATIVE (<1000 ng/mL); Barbiturate Urine VISTA NEGATIVE (< 200 ng/mL); Benzodiazepine Urine VISTA NEGATIVE (< 200 ng/mL); Cocaine Urine VISTA NEGATIVE (< 300 ng/mL); Ecstacy Urine VISTA NEGATIVE (< 500 ng/mL); Methadone Urine VISTA NEGATIVE (< 300 ng/mL); PCP Urine VISTA NEGATIVE (< 25 ng/mL); THC Urine VISTA NEGATIVE (< 50 ng/mL); Vista UDS pH Range 5
--- NOTE | 2017-12-13 14:18 | NURSING ---
CRISIS AWARE OF PATIENT
--- NOTE | 2017-12-13 23:39 | ED.RN ---
REPORT GIVEN TO VALENTIN AT [facility].
[2017-12-14 09:52] LABS: Pathologist Review Reviewed
== END 2017-12-13 23:15 ==
PROVIDERS: Emergency Provider Emergency Medicine; Family Provider Internal Medicine; PCP Internal Medicine
DX: F03.91 Unspecified dementia, unspecified severity, with behavioral disturbance (principal); R45.851 Suicidal ideations; R45.1 Restlessness and agitation; R27.0 Ataxia, unspecified; Z79.899 Other long term (current) drug therapy; Z87.891 Personal history of nicotine dependence
CPT/HCPCS: 36415; 70450; 71046; 80048; 80076; 80307; 80320; 81001; 84443; 85025; 93005; 99285; G0480